=== PATIENT | female | born 1995 | race Hispanic/Latino ===

== ENCOUNTER 2019-08-16 00:49 | Emergency (ER) | payer MEDICAID, OTHER ==
[2019-08-16] MEDS ORDERED: LIDOCAINE HCL 1% 20 ML VIAL ONE (01:34)
[2019-08-16] MEDS ORDERED: TETANUS/DIPHTHERIA TOXOID [ADULT] 0.5 ML VIAL IM ONE (01:52)
== END 2019-08-16 02:24 | disposition home or self-care (01) ==
LOC: EDH 00:49
DX: S91.209A Unspecified open wound of unspecified toe(s) with damage to nail, initial encounter (principal); X58.XXXA Exposure to other specified factors, initial encounter; Y93.89 Activity, other specified; Y92.098 Other place in other non-institutional residence as the place of occurrence of the external cause; Y99.8 Other external cause status
CPT/HCPCS: 11730; 73660; 90471; 90714

== ENCOUNTER 2021-04-28 19:54 | Emergency (ER) | payer BC, OTHER ==
[~2021-04-28] VITALS: Ht 165.1 cm; Wt 75.3 kg
[2021-04-28 20:02] VITALS: BP 112/68
[2021-04-28] MEDS ORDERED: OCTYL 2-CYANOACRYLATE 1 EACH TP ONE ×2 (22:10→22:24)
[2021-04-28] MEDS ORDERED: TETANUS/DIPHTHERIA TOXOID [ADULT] 0.5 ML VIAL IM ONE (22:21)
[2021-04-28] MEDS ORDERED: TETANUS IMMUNE GLOBULIN 250 UNIT SYRINGE IM ONE (22:30)
== END 2021-04-28 22:54 | disposition home or self-care (01) ==
LOC: EDH 19:54
DX: S61.211A Laceration without foreign body of left index finger without damage to nail, initial encounter (principal); W26.0XXA Contact with knife, initial encounter; Y93.89 Activity, other specified; Y92.89 Other specified places as the place of occurrence of the external cause; Y99.8 Other external cause status
CPT/HCPCS: 12001; 90471; 90714